=== PATIENT | female | born 2000 | race Two or more races ===

== ENCOUNTER 2025-06-05 06:45 | Emergency (ER) | payer OTHER ==
[~2025-06-05] VITALS: Ht 170.2 cm; Wt 70.3 kg
[2025-06-05] MEDS ORDERED: BUTALB/ACETAMINOPHEN/CAFFEINE 1 TAB TABLET PO ONE ×2 (07:45→08:16)
[2025-06-05] MEDS ORDERED: CETIRIZINE HCL 5 MG/5 ML ML PO ONE (07:45)
[2025-06-05] MEDS ORDERED: CEFTRIAXONE SODIUM 1,000 MG VIAL IV ONE (08:00)
[2025-06-05] MEDS ORDERED: ONDANSETRON HCL 2 MG/ML VIAL IV ONE (08:00)
[2025-06-05] MEDS ORDERED: FAMOTIDINE/PF 20 MG/2 ML VIAL IV ONE (08:00)
[2025-06-05] MEDS ORDERED: 0.9 % SODIUM CHLORIDE 1,000 ML IV ONE (08:00)
[2025-06-05] MEDS ORDERED: ONDANSETRON HCL 2 MG/ML VIAL ONE (08:16)
[2025-06-05] MEDS ORDERED: CETIRIZINE HCL 5MG/5ML BLIST.PACK PO ONE (08:18)
[2025-06-05] MEDS ORDERED: FAMOTIDINE/PF 20 MG/2 ML VIAL ONE (08:18)
[2025-06-05 09:15] LABS: BASO % 0.3 % (0.1-1.2); EOS # 0.01 (0.04-0.54); EOS % 0.1 % (0.7-7.0); LYMPH # 1.34 (1.18-3.74); LYMPH % 18.5 % (19.3-53.1); MEAN PLATELET VOLUME 11.50 fl (9.4-12.4); MONO # 0.42 (0.24-0.82); MONO % 5.8 % (4.7-12.5); NEUT # 5.46 (1.56-6.13); NEUT % 75.2 % (34.0-71.1); RED CELL DISTRIBUTION WIDTH 13.2 % (11.6-14.4)
[2025-06-05 09:35] LABS: URINE APPEARANCE Clear; URINE BILIRRUBIN Negative (NEGATIVE); URINE BLOOD Moderate; URINE COLOR Dark Yellow; URINE GLUCOSE Negative (NEGATIVE); URINE KETONE Trace (NEGATIVE); URINE LEUKOCYTE Trace; URINE NITRATE Negative; URINE PROTEIN 30 (NEGATIVE); URINE UROBILINOGEN 1.0 E.U./dl
[2025-06-05 09:40] LABS: URINE EPITHELIAL CELLS 167.8 uL (0.0-38.8); URINE RBC 16.5 uL (0.0-20.8); URINE WBC 55.3 uL (0.0-23.2)
[2025-06-05 09:47] LABS: ALT/SGPT 23 U/L (12-78); AST/SGOT 16 U/L (15-37); BILIRUBIN TOTAL 0.51 mg/dL (0.3-1.2); BUN CREA RATIO 17 (7.0-25.0); CREATININE SERUM 0.72 mg/dL (0.55-1.02); GFR 98.69; GLOBULINA 3.7 G/DL (2.4-3.5); GLUCOSE FASTING 93 mg/dL (65-100); OSMOLALITY SERUM 281 MOSM/KG (275-295)
[2025-06-05 09:48] LABS: URINE CAST 0.28 uL (0.0-1.40)
[2025-06-05 09:49] LABS: HCG QUANTITATIVE < 1 mUI/mL (1-3)
[2025-06-05 09:50] LABS: URINE EPITHELIAL CELLS LOADED /HPF
[2025-06-05 10:16] LABS: COVID-19 AG NEGATIVE (NEGATIVE)
[2025-06-05] MEDS ORDERED: OSEL75CA PO (10:33)
[2025-06-05] MEDS ORDERED: PEPCID AC20 MG PO (10:33)
[2025-06-05] MEDS ORDERED: ZOFRAN8 MG PO (10:34)
== END 2025-06-05 11:15 | disposition home or self-care (01) ==
LOC: ER 06:46
PROVIDERS: General Practice
DX: J10.1 Influenza due to other identified influenza virus with other respiratory manifestations (principal); R51.9 Headache, unspecified; K21.9 Gastro-esophageal reflux disease without esophagitis; R11.10 Vomiting, unspecified; Z20.822 Contact with and (suspected) exposure to COVID-19